=== PATIENT | male | born 1945 | race Caucasian/White ===

== ENCOUNTER → 2022-07-25 | Outpatient (CLI) | payer MEDICARE, OTHER | LOC: RAD 10:26 | PROVIDERS: ATTEND Internal Medicine | DX: N49.2 Inflammatory disorders of scrotum (principal); N43.3 Hydrocele, unspecified | CPT/HCPCS: 76870; 93976 ==

== ENCOUNTER → 2022-08-25 | Outpatient (CLI) | payer MEDICARE, OTHER | LOC: CT 13:35 | PROVIDERS: ATTEND Urology | DX: N20.0 Calculus of kidney (principal); K40.90 Unilateral inguinal hernia, without obstruction or gangrene, not specified as recurrent; E27.9 Disorder of adrenal gland, unspecified | CPT/HCPCS: 74176 ==